=== PATIENT | male | born 2000 | race Caucasian/White ===

== ENCOUNTER 2020-04-22 20:10 | Emergency (ER) | payer SELFPAY ==
[~2020-04-22 20:10] MED LIST: AUGMENTIN 500-500 MG PO; COLACE 100MG C100 MG PO; LIBRIUM CAP 2525 MG PO; LORTAB 7.5-3251 EACH PO; NORCO 5-325 TA1 EACH PO; ONDANSETRON ODT4 MG PO
[2020-04-22] MEDS ORDERED: IBUPROFEN600 MG PO (21:29)
== END 2020-04-22 21:40 | disposition home or self-care (01) ==
LOC: ER1 20:10
DX: S60.221A Contusion of right hand, initial encounter (principal); F17.210 Nicotine dependence, cigarettes, uncomplicated; W31.9XXA Contact with unspecified machinery, initial encounter; Y92.89 Other specified places as the place of occurrence of the external cause; Y99.0 Civilian activity done for income or pay
CPT/HCPCS: 29125; 73130; 99283